=== PATIENT | female | born 1960 | race Caucasian/White ===

== ENCOUNTER 2023-11-21 10:17 | Observation (INO) ==
--- NOTE | 2023-10-19 15:07 | PAT Medication Instructions ---
Medication Instructions Date of Service October 19, 2023 Home Medications Bacillus coagulans-Bacillus subtilis 1.5 billion cell chewable tablet (Probiotic Duo) 1 tab PO QAM Lactobacillus acidophilus (Acidophilus chewable tablet) 1 tab PO DAILY PRN ascorbic acid (vitamin C) 1,000 mg tablet (Vitamin C) 1 g PO QAM black cohosh root extract 200 mg capsule 200 mg PO HS bupropion HCl 100 mg tablet 100 mg PO Q OTHER DAY celecoxib 200 mg capsule 200 mg PO BID cholecalciferol (vitamin D3) 50 mcg (2,000 unit) tablet (Vitamin D3) 4,000 unit PO QAM cinnamon bark 500 mg capsule (Cinnamon) 4,000 mg PO BID cranberry concentrate-ascorbic acid 140 mg-100 mg capsule (Cranberry Plus Vitamin C) 1 cap PO HS cyclobenzaprine 10 mg tablet 10 mg PO TID PRN docusate sodium 100 mg tablet (Stool Softener) 100 mg PO BID echinacea-dodson seal capsule 1 cap PO DAILY PRN glipizide 10 mg tablet, extended release 24 hr 10 mg PO BID insulin glargine 100 unit/mL (3 mL) subcutaneous pen (Lantus Solostar U-100 Insulin) 22 unit subcut HS linagliptin 5 mg tablet (Tradjenta) 5 mg PO QAM loratadine 10 mg tablet 10 mg PO QAM lorazepam 0.5 mg tablet 0.5 mg PO DAILY PRN multivitamin 1 tab PO QAM omega-3 fatty acids 1,000 mg PO HS pantoprazole 40 mg tablet,delayed release 40 mg PO HS sennosides 8.6 mg tablet 8.6 mg PO HS simvastatin 80 mg tablet 80 mg PO QAM Continue as directed bupropion HCl 100 mg tablet 100 mg PO Q OTHER DAY lorazepam 0.5 mg tablet 0.5 mg PO DAILY PRN(if needed) ASK your surgeon for instructions celecoxib 200 mg capsule 200 mg PO BID STOP taking 2 weeks before surgery (or as soon as possible if surgery is within 2 weeks) black cohosh root extract 200 mg capsule 200 mg PO HS cinnamon bark 500 mg capsule (Cinnamon) 4,000 mg PO BID echinacea-dodson seal capsule 1 cap PO DAILY PRN omega-3 fatty acids 1,000 mg PO HS DO NOT take the morning of surgery Bacillus coagulans-Bacillus subtilis 1.5 billion cell chewable tablet (Probiotic Duo) 1 tab PO QAM Lactobacillus acidophilus (Acidophilus chewable tablet) 1 tab PO DAILY PRN ascorbic acid (vitamin C) 1,000 mg tablet (Vitamin C) 1 g PO QAM cholecalciferol (vitamin D3) 50 mcg (2,000 unit) tablet (Vitamin D3) 4,000 unit PO QAM docusate sodium 100 mg tablet (Stool Softener) 100 mg PO BID glipizide 10 mg tablet, extended release 24 hr 10 mg PO BID linagliptin 5 mg tablet (Tradjenta) 5 mg PO QAM loratadine 10 mg tablet 10 mg PO QAM multivitamin 1 tab PO QAM Take morning of surgery With a small sip of water, OTHERWISE NOTHING TO EAT OR DRINK AFTER MIDNIGHT: cyclobenzaprine 10 mg tablet 10 mg PO TID PRN(if needed) simvastatin 80 mg tablet 80 mg PO QAM Take evening before surgery cranberry concentrate-ascorbic acid 140 mg-100 mg capsule (Cranberry Plus Vitamin C) 1 cap PO HS docusate sodium 100 mg tablet (Stool Softener) 100 mg PO BID glipizide 10 mg tablet, extended release 24 hr 10 mg PO BID insulin glargine 100 unit/mL (3 mL) subcutaneous pen (Lantus Solostar U-100 Insulin) 22 unit subcut HS pantoprazole 40 mg tablet,delayed release 40 mg PO HS sennosides 8.6 mg tablet 8.6 mg PO HS cyclobenzaprine 10 mg tablet 10 mg PO TID PRN(if needed) Other Notes If you have any questions please call us at [phone] or [phone] or [phone] or [phone]
--- NOTE | 2023-10-25 13:49 | Anesthesiology Consultation ---
Date of Service October 25, 2023 Assessment & Plan (1) Encounter for pre-operative examination: Chart Review Chart Review: Acceptable Risk for Surgery (pending previous cardiac cath if available ) and Patient seen in Pre Admission Testing - Please attempt to obtain cardiac cath from PCP office (RUDOLPH Shepard)- fax number is [phone] (PCP office requesting record release) - Check [facility] AM DOS - Patient NOT an ideal OPJ candidate (currently 23 hour obs) Per PAT appt on 10/25/23, no recent illness/disease exposures, illness related symptoms, or recent illness/disease positive tests. Will leave to surgeon's discretion if preop Covid testing needed Teaching & Discussion Pre-Anesthesia Teaching/Discussion Notes: Instructed NPO after midnight before surgery,except medications with 15 cc of water. Medication instructions provided according to the PAT guidelines. History Surgery Operation Date: 11/21/23 11:20 Proposed Procedures p Left Anatomic total Shoulder Arthroplasty vs(Left) - Baldomero Vuong DO s Left Reverse Total Shoulder Arthroplasty(Left) - Baldomero Vuong DO Height/Weight Height: 5 ft 5 in Weight: 101.9 kg Allergies Allergy/AdvReac Type Severity Reaction Status Date / Time bee venom protein (honey bee) Allergy Severe Anaphylaxis Verified 10/19/23 09:17 metformin AdvReac Mild Diarrhea Verified 10/19/23 09:17 Medications Home Medications Medication Instructions Recorded Confirmed Last Taken Bacillus coagulans-Bacillus 1 tab PO QAM 10/19/23 10/19/23 Unknown subtilis 1.5 billion cell chewable tablet (Probiotic Duo) Lactobacillus acidophilus 1 tab PO DAILY PRN antibiotic use 10/19/23 10/19/23 Unknown (Acidophilus chewable tablet) ascorbic acid (vitamin C) 1,000 mg 1 g PO QAM 10/19/23 10/19/23 Unknown tablet (Vitamin C) black cohosh root extract 200 mg 200 mg PO HS 10/19/23 10/19/23 Unknown capsule bupropion HCl 100 mg tablet 100 mg PO Q OTHER DAY 10/19/23 10/19/23 Unknown celecoxib 200 mg capsule 200 mg PO BID 10/19/23 10/19/23 Unknown cholecalciferol (vitamin D3) 50 4,000 unit PO QAM 10/19/23 10/19/23 Unknown mcg (2,000 unit) tablet (Vitamin D3) cinnamon bark 500 mg capsule 4,000 mg PO BID 10/19/23 10/19/23 Unknown (Cinnamon) cranberry concentrate-ascorbic 1 cap PO HS 10/19/23 10/19/23 Unknown acid 140 mg-100 mg capsule (Cranberry Plus Vitamin C) cyclobenzaprine 10 mg tablet 10 mg PO TID PRN Muscle Spasm 10/19/23 10/19/23 Unknown docusate sodium 100 mg tablet 100 mg PO BID 10/19/23 10/19/23 Unknown (Stool Softener) echinacea-dodson seal capsule 1 cap PO DAILY PRN sickness 10/19/23 10/19/23 Unknown glipizide 10 mg tablet, extended 10 mg PO BID 10/19/23 10/19/23 Unknown release 24 hr insulin glargine 100 unit/mL (3 22 unit subcut HS 10/19/23 10/19/23 Unknown mL) subcutaneous pen (Lantus Solostar U-100 Insulin) linagliptin 5 mg tablet (Tradjenta) 5 mg PO QAM 10/19/23 10/19/23 Unknown loratadine 10 mg tablet 10 mg PO QAM 10/19/23 10/19/23 Unknown lorazepam 0.5 mg tablet 0.5 mg PO DAILY PRN Anxiety 10/19/23 10/19/23 Unknown multivitamin 1 tab PO QAM 10/19/23 10/19/23 Unknown omega-3 fatty acids 1,000 mg PO HS 10/19/23 10/19/23 Unknown pantoprazole 40 mg tablet,delayed 40 mg PO HS 10/19/23 10/19/23 Unknown release sennosides 8.6 mg tablet 8.6 mg PO HS 10/19/23 10/19/23 Unknown simvastatin 80 mg tablet 80 mg PO QAM 10/19/23 10/19/23 Unknown Past Medical History Medical History Anxiety Chronic back pain Diabetes mellitus, type 2 Well controlled and stable GERD (gastroesophageal reflux disease) Well controlled and stable History of COVID-19 10/2020- mild symptoms, resolved History of depression Hyperlipidemia Osteoarthritis Skipped heart beats intermittent x at least 15 years - did have previous Holter monitor- no issues- 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 Sleep apnea CPAP Exercise / Class Metabolic Activity II 4-5 Yardwork/Stairs/Walk up hill (one flight of stairs - no chest pain or SOB ) Past Family History Family History Mother Family history of reaction to anesthesia difficulty waking Past Surgical History Surgical History (Updated 10/25/23 @ 16:01 by Valeria Coleman PA-C) History of appendectomy History of arthroscopy of hip left History of benign breast biopsy History of bilateral tubal ligation History of bladder suspension procedure History of cardiac cath 2016 ([facility])- no stents History of cholecystectomy History of colonoscopy History of dilatation and curettage x3 History of esophagogastroduodenoscopy (EGD) History of gastric restrictive surgery gastric sleeve History of hysterectomy with unilateral oophorectomy History of removal of cyst Removal of "fibrocystic cyts throughout body" History of repair of left rotator cuff History of umbilical hernia repair History of wisdom tooth extraction Past Anesthesia History No Hx of Anesthesia Complications and No Family Hx of Anesthesia Complications (with exception to mother- slow to wake- groggy - no reintubation or ICU stay ) History of PONV No Hx of PONV and No Hx of Motion Sickness Social History Smoking Status: Former smoker Do You Dip or Chew Tobacco: No Smoking End Date: as a teenager Hx Alcohol Use: Yes ("once a year") alcohol intake frequency: holidays/special occasions only Hx Substance Use: No substance use type: does not use Review of Systems Patient denies chest pain, shortness of breath, dyspnea on exertion, cough, wheezing, palpitations. No hx of seizures, stroke, PA. No hx of blood clots or blood transfusions Physical Exam Vital Signs VITALS BP 133/81 P 49 bpm (baseline per patient- asymptomatic) TEMP 98.1 SP02 95% RESP 16 Constitutional no acute distress ENMT Mouth: no TMJ clicking Thyromental Distance: > or= 3.5 Finger Breadths (3.5) Mallampati Class: III Neck neck extension not limited Respiratory normal respiratory effort; no respiratory distress Auscultation: lungs clear to auscultation bilaterally; no wheezes Cardiovascular Rate/Rhythm: regular rate and regular rhythm Heart Sounds: no murmur Vessels: no carotid bruit Musculoskeletal Spine: + pain with cervical ROM (mild) Extremities: extremities normal to inspection Psychiatric Orientation: alert Lab Results Anesthesia Preop Results Results Anesthesia Widget: WBC 7.76 K/ul (4.8-10.8) 10/25/23 Hgb 13.3 g/dl (12.0-16.0) 10/25/23 Hct 40.8 % (37.0-47.0) 10/25/23 Plt 240 K/uL (130-400) 10/25/23 Na 139 mmol/L (136-145) 10/25/23 K 4.5 mmol/L (3.5-5.1) 10/25/23 Cl 106 mmol/L (98-107) 10/25/23 CO2 29 mmol/L (21-32) 10/25/23 BUN 20 mg/dl (6-23) 10/25/23 Creat 0.96 mg/dl (0.6-1.2) 10/25/23 Glucose Level 158 mg/dl (70-99(Fasting)) H 10/25/23 PT 10.4 Seconds (9.0-12.0) 10/25/23 PTT 26 Seconds (21-31) 10/25/23 INR 0.9 (0.9-1.1) 10/25/23 HA1c 7.6 % (4.5-5.6) H 10/25/23 Blood Type A Positive 10/25/23 Antibody Screen NEGATIVE 10/25/23 Testing Electrocardiogram Date: 10/25/23 Findings: + SB @ (46bpm) Otherwise normal EKG per cardio Chest X-Ray Date: 10/25/23 Findings: + NAD
--- NOTE | 2023-11-16 16:28 | History & Physical Report ---
Date of Service November 16, 2023 Assessment & Plan (1) Osteoarthritis of left shoulder: We will proceed with a left total shoulder arthroplasty versus reverse shoulder arthroplasty. Postoperatively she will be placed in a sling and will be kept overnight in the hospital for postop medical management. She plans to go to [facility] upon discharge. History of Present Illness Chief Complaint: Osteoarthritis of the left shoulder. Primary Care Provider: NO PCP . Pamela is a pleasant 63-year-old female who underwent a left shoulder arthroscopy by Dr. Hurtado over a year ago. Postoperatively, a therapist moved her arm a little aggressively and out of her comfort zone. She has been having an increased pain since. She has known arthritis to that shoulder. Dr. Hurtado told her she would need a shoulder replacement, but she came to me for a second opinion. I have sent her for an MRI of her shoulder. The MRI showed advanced arthritis but an intact rotator cuff. After failing conservative treatment, she has elected proceed with a left total shoulder arthroplasty. Allergies Allergy/AdvReac Type Severity Reaction Status Date / Time bee venom protein (honey bee) Allergy Severe Anaphylaxis Verified 10/19/23 09:17 metformin AdvReac Mild Diarrhea Verified 10/19/23 09:17 Home Medications Medication Instructions Recorded Confirmed Type Bacillus coagulans-Bacillus 1 tab PO QAM 10/19/23 10/19/23 History subtilis 1.5 billion cell chewable tablet (Probiotic Duo) Lactobacillus acidophilus 1 tab PO DAILY PRN antibiotic use 10/19/23 10/19/23 History (Acidophilus chewable tablet) ascorbic acid (vitamin C) 1,000 mg 1 g PO QAM 10/19/23 10/19/23 History tablet (Vitamin C) black cohosh root extract 200 mg 200 mg PO HS 10/19/23 10/19/23 History capsule bupropion HCl 100 mg tablet 100 mg PO Q OTHER DAY 10/19/23 10/19/23 History celecoxib 200 mg capsule 200 mg PO BID 10/19/23 10/19/23 History cholecalciferol (vitamin D3) 50 4,000 unit PO QAM 10/19/23 10/19/23 History mcg (2,000 unit) tablet (Vitamin D3) cinnamon bark 500 mg capsule 4,000 mg PO BID 10/19/23 10/19/23 History (Cinnamon) cranberry concentrate-ascorbic 1 cap PO HS 10/19/23 10/19/23 History acid 140 mg-100 mg capsule (Cranberry Plus Vitamin C) cyclobenzaprine 10 mg tablet 10 mg PO TID PRN Muscle Spasm 10/19/23 10/19/23 History docusate sodium 100 mg tablet 100 mg PO BID 10/19/23 10/19/23 History (Stool Softener) echinacea-dodson seal capsule 1 cap PO DAILY PRN sickness 10/19/23 10/19/23 History glipizide 10 mg tablet, extended 10 mg PO BID 10/19/23 10/19/23 History release 24 hr insulin glargine 100 unit/mL (3 22 unit subcut HS 10/19/23 10/19/23 History mL) subcutaneous pen (Lantus Solostar U-100 Insulin) linagliptin 5 mg tablet (Tradjenta) 5 mg PO QAM 10/19/23 10/19/23 History loratadine 10 mg tablet 10 mg PO QAM 10/19/23 10/19/23 History lorazepam 0.5 mg tablet 0.5 mg PO DAILY PRN Anxiety 10/19/23 10/19/23 History multivitamin 1 tab PO QAM 10/19/23 10/19/23 History omega-3 fatty acids 1,000 mg PO HS 10/19/23 10/19/23 History pantoprazole 40 mg tablet,delayed 40 mg PO HS 10/19/23 10/19/23 History release sennosides 8.6 mg tablet 8.6 mg PO HS 10/19/23 10/19/23 History simvastatin 80 mg tablet 80 mg PO QAM 10/19/23 10/19/23 History Past Med/Surg History Medical History Chronic back pain Osteoarthritis GERD (gastroesophageal reflux disease) Well controlled and stable History of depression Anxiety Diabetes mellitus, type 2 Well controlled and stable Hyperlipidemia Skipped heart beats intermittent x at least 15 years - did have previous Holter monitor- no issues- 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 History of COVID-19 10/2020- mild symptoms, resolved Sleep apnea CPAP Surgical History History of hysterectomy with unilateral oophorectomy History of dilatation and curettage x3 History of bilateral tubal ligation History of removal of cyst Removal of "fibrocystic cyts throughout body" History of repair of left rotator cuff History of arthroscopy of hip left History of benign breast biopsy History of bladder suspension procedure History of colonoscopy History of esophagogastroduodenoscopy (EGD) History of umbilical hernia repair History of cholecystectomy History of appendectomy History of gastric restrictive surgery gastric sleeve History of wisdom tooth extraction History of cardiac cath 2016 ([facility])- no stents Family History Mother Family history of reaction to anesthesia difficulty waking Social History Smoking Status: Former smoker Tobacco Type: Cigarettes Smoking End Date: as a teenager; Second Hand Exposure: No; Do You Dip or Chew Tobacco: No; Tobacco Cessation Education Requested by Patient: No Hx Alcohol Use: Yes ("once a year") Hx Substance Use: No Preferred Language: Turkmen Communication Ability: Effective Brilliandeer Looper Required: No Beliefs That Will Affect Care: None Current Living Situation: Alone Other Information That Helps Us Care for You: No Feels Safe at Home: Yes Safety Concerns: Feels Safe At This Time Assistive Devices: CPAP and Glasses Assistive Devices Comment: reading glasses Review of Systems All systems reviewed & are unremarkable except as noted in HPI & below. Physical Exam Physical examination of the left shoulder shows slightly decreased range of motion. She has 5 5 motion throughout. She has pain over the glenohumeral joint line. Constitutional WD/WN, vitals as above Eyes PERRL, conjunctivae normal, anicteric sclerae ENMT external ear and nose normal, oropharynx normal Neck trachea midline, no thyromegaly Respiratory normal respiratory effort Cardiovascular RRR, no murmur, no edema Gastrointestinal (Abdomen) normal bowel sounds, soft, nontender, no hepatosplenomegaly Psychiatric A+Ox3, euthymic affect Results & Data Results & Data Laboratory Results . Diagnostic Findings X-rays of the left shoulder show advanced osteoarthritis with joint space narrowing osteophyte formation.. PG Care Time/CCT Total # of Minutes Spent Total Time Spent with Patient: Total time spent is greater than 50% in coordination of care (as documented) at patient's floor/unit and/or counseling patient: Coding Level of Care Code None Diagnoses Osteoarthritis of left shoulder M19.012
[~2023-11-21 10:17] MED LIST: BUPIVACAINE 0.5 % 5 MG/1 ML PF 10ML VIAL ONE
[2023-11-21] MEDS ORDERED: LIDOCAINE 2% 2 ML VIAL/AMP(20MG/ML) INFIL ONE (10:20)
[2023-11-21] MEDS ORDERED: PROPOFOL IV EMULSION 10 MG/ML 20 ML VIAL IV ONE (10:20)
[2023-11-21] MEDS ORDERED: MIDAZOLAM HCL 1 MG/ML 2ML VIAL ONE (10:20)
[2023-11-21] MEDS ORDERED: ROCURONIUM BROMIDE 10 MG/ML 5 ML VIAL IV ONE (10:20)
[2023-11-21] MEDS ORDERED: fentaNYL citrate PF 100 MCG/2 ML VIAL ONE (10:21)
[2023-11-21] MEDS: LR 60ML/HR IV SCH (11:06)
[2023-11-21] MEDS: LR 15ML/HR IV SCH (11:06)
[2023-11-21] MEDS: dexAMETHasone**PF** 10 MG/ML VIAL IV SCH (11:06)
[2023-11-21] MEDS: GABAPENTIN 600 MG DOSE PO SCH (11:07)
[2023-11-21] MEDS: FAMOTIDINE 20 MG TAB PO SCH (11:07)
[2023-11-21] MEDS: ACETAMINOPHEN 500 MG TAB PO SCH ×2 (11:07→16:10)
[2023-11-21] MEDS ORDERED: fentaNYL citrate PF 100 MCG/2 ML VIAL IV PRN (11:22)
[2023-11-21] MEDS ORDERED: ATROPINE SULFATE 0.1 MG/ML 10ML SYR IV PRN (11:22)
[2023-11-21] MEDS ORDERED: ePHEDrine sulfate 50 MG/ML AMP IV PRN (11:22)
[2023-11-21] MEDS ORDERED: ONDANSETRON INJ 2 MG/ML 2 ML VIAL IV PRN ×2 (11:22→15:40)
[2023-11-21] MEDS ORDERED: PROMETHAZINE HCL 6.25 MG in SODIUM CHLORIDE 0.9% 50 ML IV PRN (11:22)
--- NOTE | 2023-11-21 11:23 | History & Physical Bridge Note ---
Date of Service November 21, 2023 History & Physical Bridge Note I have examined the patient, reviewed the History & Physical and in the interval since the performance of the History & Physical I have noted the following changes of clinical significance: no changes noted
[2023-11-21] MEDS: TRANEXAMIC ACID 1,000 MG **IV Pre-op IV SCH (12:00)
[2023-11-21] MEDS: ceFAZolin 2000MG 2,000 MG/15 ML SYR IV SCH ×2 (12:14→18:02)
[2023-11-21] MEDS ORDERED: DEXAMETHASONE SOD INJ 4 MG/ML VIAL ONE (12:36)
[2023-11-21] MEDS ORDERED: ePHEDrine sulfate 50 MG/ML AMP ONE (13:02)
[2023-11-21] MEDS: ROPIV 0.5% 246mg, Ketorolac 30mg, EPINEPHrine 0.5mg in NSS INFIL SCH (13:14)
[2023-11-21] MEDS: ORTHO JOINT ANESTHETIC ONE (13:14)
[2023-11-21] MEDS ORDERED: ONDANSETRON INJ 2 MG/ML 2 ML VIAL ONE (13:35)
[2023-11-21] MEDS: TRANEXAMIC ACID 1,000 MG **IV Intra-op IV SCH (13:37)
--- NOTE | 2023-11-21 14:33 | Anesthesiology Progress Note ---
Date of Service November 21, 2023 Anesthesia Post Procedure Vital Signs Vital Signs: Temp Pulse Pulse Resp BP Pulse Ox O2 Del Method 11/21/23 14:25 56 L 15 130/63 97 Oxymask 11/21/23 14:15 65 17 132/65 93 Oxymask 11/21/23 14:05 36 C L 69 19 143/72 H 93 Oxymask 11/21/23 10:41 36.8 C 53 L 18 155/68 H 97 Room Air O2 Flow Rate 11/21/23 14:25 4 11/21/23 14:15 6 11/21/23 14:05 6 11/21/23 10:41 Pain Intensity Right Shoulder: Pain Intensity: 6 Transfer of Care Handoff Completed per policy Notes Mental Status: alert / awake / arousable and participated in evaluation Patient Amnestic to Procedure: Yes Nausea / Vomiting: adequately controlled Pain: adequately controlled Airway Patency, RR, SpO2: stable & adequate BP & HR: stable & adequate Hydration State: stable & adequate Anesthetic Complications: no major complications apparent and Pt Satisfied with anesthetic care
--- NOTE | 2023-11-21 14:59 | XRay Report ---
LEFT SHOULDER 2 VIEWS CLINICAL HISTORY: Postoperative examination. FINDINGS: 2 portable views of the left shoulder are compared to study dated 08/30/2023. The skeletal structures are osteopenic. A left shoulder arthroplasty is in near anatomic alignment. No acute fract ure seen. Skin clips, subcutaneous gas, and soft tissue swelling overlying the left shoulder are expe cted postsurgical changes. Productive degenerative change is noted at the acromioclavicular joint. At electasis is seen at the left lung base. IMPRESSION: Expected postoperative findings status post left shoulder arthroplasty. No acute fracture is seen. Electronically signed by: Adrian Narvaez M.D. 11/21/2023 2:57 PM
[2023-11-21] MEDS ORDERED: LORazepam 0.5 MG TAB PO PRN (15:40)
[2023-11-21] MEDS ORDERED: NALOXONE HCL 0.4 MG/1 ML VIAL/CARP IV PRN (15:40)
[2023-11-21] MEDS ORDERED: PHARMACY GLYCEMIC MGMT CONSULT PRN (15:40)
[2023-11-21] MEDS ORDERED: CYCLOBENZAPRINE HCL 10 MG TAB PO PRN (15:40)
[2023-11-21] MEDS ORDERED: HYDROmorphone INJ 0.5 MG/0.5 ML SYR IV PRN (15:40)
[2023-11-21] MEDS ORDERED: MAGNESIUM HYDROXIDE SUSP 30 ML UDC PO PRN (15:40)
[2023-11-21] MEDS ORDERED: METOCLOPRAMIDE HCL INJ 5 MG/ML 2 ML VIAL IV PRN (15:40)
[2023-11-21] MEDS ORDERED: bisacodyL 10 MG SUPP PR PRN (15:40)
[2023-11-21] MEDS: SODIUM CHLORIDE 0.9% 1,000 ML IV SCH (15:43)
[2023-11-21] MEDS ORDERED: FEXOFENADINE 60 MG TAB PO PRN (15:50)
[2023-11-21] MEDS: KETOROLAC 30 MG/ML VIAL IV SCH (16:10)
[2023-11-21] MEDS ORDERED: CARBOHYDRATES FOR HYPOGLYCEMIA PO PRN (16:15)
[2023-11-21] MEDS ORDERED: GLUCOSE 40% GEL 15 GM TUBE PO PRN (16:15)
[2023-11-21] MEDS ORDERED: GLUCAGON FOR INJ 1 MG VIAL IM PRN (16:15)
[2023-11-21] MEDS ORDERED: DEXTROSE 50% 50 ML SYRINGE IV PRN (16:15)
[2023-11-21] MEDS ORDERED: INSULIN ASPART PER UNIT CHARGE SC SCH ×2 (16:15→16:30)
[2023-11-21] MEDS ORDERED: GLUCOSE 10 TAB/TUBE PO PRN (16:15)
[2023-11-21] MEDS: buPROPion HCl 100 MG TABLET PO SCH (16:51)
[2023-11-21] MEDS: LANTUS PER UNIT CHARGE SC ONE (16:55)
[2023-11-21] MEDS: COUGH DROP (SUGAR FREE) LOZ 24 LOZ/1 BOX BUCCAL ONE (19:10)
[2023-11-21] MEDS: INSULIN ASPART PER UNIT CHARGE SC SCH (20:27)
[2023-11-21] MEDS: SENNA 8.6 MG TAB PO SCH (20:35)
[2023-11-21] MEDS: DOCUSATE SODIUM 100 MG CAP PO SCH (20:36)
[2023-11-21] MEDS ORDERED: NON-FORMULARY MEDICATION (Docusate Sodium [Stool Softener] 100 mg Tablet) PO SCH (21:00)
[2023-11-22] MEDS: MULTIVITAMIN TAB PO SCH (08:18)
[2023-11-22] MEDS: LORATADINE 10 MG TAB PO SCH (08:18)
[2023-11-22] MEDS: SIMVASTATIN 80 MG TAB PO SCH (08:18)
[2023-11-22] MEDS: INSULIN ASPART PER UNIT CHARGE SC SCH (08:23)
[2023-11-22] MEDS: oxyCODONE HCL IR 5 MG TAB (IMMEDIATE RELEASE) PO PRN (09:41)
--- NOTE | 2023-11-22 10:09 | Orthopedic Progress Note ---
Date of Service November 22, 2023 Assessment & Plan (1) Status post replacement of left shoulder joint: Overall, she is doing quite well today with good pain control. I did have a discussion that her nerve block may remain active for the next 24 to 48 hours postoperatively. She is already regaining some range of motion and sensation. She will work with physical therapy later this morning to work on range of motion exercises of the left upper extremity. Once evaluated by physical therapy, she can be discharged home later this morning. She will follow-up with orthopedics in 2 weeks for postoperative care. Subjective . Pamela was seen and evaluated at bedside this morning resting comfortably in no apparent distress. She notes that her pain is well-controlled to the left arm and that her block is still somewhat there but she is noticing it is slowly we aring off. She has been up and ambulating out of bed with no significant issues. She has yet to work with physical therapy this morning. She denies any other concerns today. Review of Systems All systems reviewed & are unremarkable except as noted in HPI & below. Physical Exam . On physical examination of the left shoulder shows the dressing is clean, dry, and intact. She is in her shoulder sling as directed. She has slight movement and altered sensation secondary from the nerve block to the left upper extremity. +2 radial pulse. Less than 2-second capillary refill. Results & Data Results & Data Laboratory Results . Diagnostic Findings . Postoperative x-rays of the left shoulder show prosthesis to be in anatomical alignment with no signs of fracture complication or loosening. PG Care Time/CCT Total # of Minutes Spent Total Time Spent with Patient: Total time spent is greater than 50% in coordination of care (as documented) at patient's floor/unit and/or counseling patient: Coding Level of Care Code 42906 Post Operative Follow-Up Diagnoses Status post replacement of left shoulder joint Z96.612
--- NOTE | 2023-11-22 10:12 | Discharge Summary ---
Date of Service November 22, 2023 Admission HPI (Per Admitting) . Pamela is a pleasant 63-year-old female who underwent a left shoulder arthroscopy by Dr. Hurtado over a year ago. Postoperatively, a therapist moved her arm a little aggressively and out of her comfort zone. She has been having an increased pain since. She has known arthritis to that shoulder. Dr. Hurtado told her she would need a shoulder replacement, but she came to me for a second opinion. I have sent her for an MRI of her shoulder. The MRI showed advanced arthritis but an intact rotator cuff. After failing conservative treatment, she has elected proceed with a left total shoulder arthroplasty. Admission Exam (Per Admitting) Physical examination of the left shoulder shows slightly decreased range of motion. She has 5 5 motion throughout. She has pain over the glenohumeral joint line. Principal Diagnosis Same as "Discharge Diagnosis" noted below under Discharge Instructions. Discharge Exam . On physical examination of the left shoulder shows the dressing is clean, dry, and intact. She is in her shoulder sling as directed. She has slight movement and altered sensation secondary from the nerve block to the left upper extremity. +2 radial pulse. Less than 2-second capillary refill. Discharge Data Procedures Performed Operation Date: 11/21/23 12:00 Actual Procedures p Left Anatomic Total Shoulder Arthroplasty(Left) - Baldomero Vuong DO Ordered Studies 11/21/23 05:00 US - OR guided needle placemen Routine Hospital Course (1) Status post replacement of left shoulder joint: On November 21, 2023 Pamela arrived at [facility] and underwent a left anatomic total shoulder arthroplasty performed by Dr. Vuong with no complications. She had a general anesthetic. Postoperatively, she was transferred to the PACU for immediate postoperative care and then transferred to the general orthopedic floor in stable condition. Her hospital course was uneventful. On postoperative day #1, her vital signs were stable and her pain was well-controlled. She participated well with physical therapy working on range of motion exercises. She was then discharged home in stable condition. She will follow-up in 2 weeks with orthopedics for postoperative care. PG Care Time/CCT Total # of Minutes Spent Total Time Spent with Patient: Total time spent is greater than 50% in coordination of care (as documented) at patient's floor/unit and/or counseling patient: Discharge Plan Discharge Items Patient Disposition: Home - Self-Care Reason For Visit: Degenerative Joint Disease Left Shoulder Discharge Diagnosis: Same Activity: Per Instructions section Non-emergency contact: Surgeon Call non-emergency contact if: your temperature is above 101.5, your wound has increased redness, your wound has increased drainage and your wound pain has increased Follow-up/Referrals: PCP,NO [Physician] - Diet: Regular Addtl Attending Provider Instructions: Activity and Therapy Recommendations: * If you are using [facility] then therapy will be provided at your home until they feel you have accomplished all of your goals. * If you are using [facility] then Physical Therapy will be provided until they feel you are ready to start Outpatient Physical Therapy. * If you are not using home therapy then Outpatient Physical Therapy should start about 3-5 days from your day of surgery. Therapy will last about 8-12 weeks * Wear your sling for 3 weeks, unless otherwise instructed. You may remove your sling to shower and to dress, but otherwise, you should be in your sling at all times, including while sleeping * The shoulder replacement is very stable and you can use your hand while in the sling * You were shown a series of exercises in the hospital. Do these exercises daily including the exercises you were shown in physical therapy. Medications: * Narcotic You will likely be sent home from the hospital with a prescription for the narcotic pain medication that worked best throughout your stay. * Cefadroxil -take the antibiotic twice a day for 10 days to help prevent infection. * Other medications may be prescribed for specific circumstances. If you have any questions, please call the office at . * Resume previous home medications unless otherwise instructed Dressing Care: Leave the Silverlon dressing in place for 7 days. After 7 days you may remove the dressing. If the incision is not draining then you may leave the windy open to air. If there is a little bit of drainage or if the windy are getting stuck on your clothing then cover the incision with a dry dressing. The windy will be removed at your 2 week follow-up appointment. Showering: You may shower with the Silverlon dressing in place. Do not let the shower spray hit the dressing directly. Pat the Silverlon dressing dry. If the dressing becomes wet underneath, then simply remove the dressing. Keep the incision dry until you are 7 days out from the day of surgery. After 7 days you may remove the Silverlon dressing and shower with the windy exposed. Let soapy water run over the windy and pat them dry. Do not scrub or soak the incision. Things To Watch For: * Drainage from the incision site that occurs more than one week after your surgery. * Increased redness at the incision site. * Fever above 102 degrees Fahrenheit. * Unusual chest pain or shortness of breath. * Call [facility] at with any of the above problems Follow-Up Visit: Follow-up with Dr. Vuong's PA (Baldomero Rodriguez) 2-3 weeks after your day of surgery. He will remove your windy and answer any questions. If you have any additional questions or concerns, Dr Vuong is usually in the office at the same time and will be available An appointment was probably scheduled when you signed-up for surgery in the office. If you have any questions call More detailed instructions as well as Frequently Asked Questions were provided in a folder by our office when you signed-up for surgery. Please review these instructions when you get home. If you have any further questions or concerns, please feel free to call the office at [phone] Pending Studies at Discharge: No Stand-Alone Forms: My [facility], Smoking Cessation Medications and DC Order Prescriptions: New oxycodone 5 mg Tablet 5 mg PO Q6 PRN (Reason: pain) Qty: 30 0RF cefadroxil 500 mg capsule 500 mg PO BID 10 Days Qty: 20 0RF Continued celecoxib [Celebrex] 200 mg Capsule 200 mg PO BID cyclobenzaprine 10 mg Tablet 10 mg PO TID PRN (Reason: Muscle Spasm) glipizide 10 mg Tablet Extended Release 24hr 10 mg PO BID Cranberry Plus Vitamin C 140-100 mg Capsule 1 cap PO HS bupropion HCl 100 mg Tablet 100 mg PO Q OTHER DAY Patient Comments: takes in the am lorazepam [Ativan] 0.5 mg Tablet 0.5 mg PO DAILY PRN (Reason: Anxiety) echinacea-dodson seal Capsule 1 cap PO DAILY PRN (Reason: sickness) loratadine [Claritin] 10 mg Tablet 10 mg PO QAM black cohosh root extract 200 mg Capsule 200 mg PO HS Acidophilus Tablet,Chewable 1 tab PO DAILY PRN (Reason: antibiotic use) cinnamon bark [Cinnamon] 500 mg Capsule 4,000 mg PO BID insulin glargine [Lantus Solostar U-100 Insulin] 100 unit/mL (3 mL) Insulin Pen 22 unit SUBCUT HS Probiotic Duo 1.5 billion cell Tablet,Chewable 1 tab PO QAM multivitamin Tablet 1 tab PO QAM omega-3 fatty acids Capsule 1,000 mg PO HS sennosides 8.6 mg Tablet 8.6 mg PO HS pantoprazole 40 mg Tablet,Delayed Release (Dr/Ec) 40 mg PO HS ascorbic acid (vitamin C) [Vitamin C] 1,000 mg Tablet 1 g PO QAM simvastatin 80 mg Tablet 80 mg PO QAM docusate sodium [Stool Softener] 100 mg Tablet 100 mg PO BID cholecalciferol (vitamin D3) [Vitamin D3] 50 mcg (2,000 unit) Tablet 4,000 unit PO QAM Tradjenta 5 mg Tablet 5 mg PO QAM fexofenadine 30 mg Tablet 30 mg PO DAILY PRN (Reason: Allergy Symptoms) Discharge Orders: Discharge Order (Routine); Ordered 11/22/23 Ordered By: Migel Qiu Admission Data Admit Date/Time: 11/21/23 12:41 Attending Provider: Baldomero Vuong Admit Provider: Baldomero Vuong Primary Care Provider: Iris Raman
--- NOTE | 2023-12-05 13:43 | Operative Report ---
PG Post Operative Report Pre & Post Diagnosis Operation Date: 11/21/23 12:00 Pre-Op Diagnosis: Degenerative Joint Disease Left Shoulder with tendinopathy long head of the biceps tendon Post-Op Diagnosis: Degenerative Joint Disease Left Shoulder with tendinopathy long head of the biceps tendon I identified the patient and participated in the time-out.: Yes Procedure Operation Date: 11/21/23 12:00 Actual Procedures p Left Anatomic Total Shoulder Arthroplasty(Left) with open biceps tenodesis as a distinct and separate procedure (modifier 59)- Baldomero Vuong DO Surgeon Baldomero Vuong DO [employer] Baldomero Rodriguez PA-C Estimated Blood Loss 200 Findings Consistent with Post-Op Diagnosis Specimens Left humeral head Description of Procedure A CPT code modifier 59: The long head of the biceps tendon was enlarged and inflamed consistent with tendinopathy. A tenodesis was opted. This was a separate and distinct portion of the procedure. For these reasons, a CPT code modifier 59 will be added to this case. Implants used: I used a [employer] Comprehensive total shoulder arthroplasty system with a size 10 press fit micro humeral stem, a size 46 x 18 eccentric humeral head, and a size 4 glenoid with a trabecular metal peg. The glenoid was cemented in place with Palacos G cement. Pamela arrived at [facility] for the above procedure. She was seen in the preoperative holding area and the operative extremity was identified and signed. She was given a preoperative antibiotic, TXA, and an interscalene nerve block. She was taken back to the operating room, laid on table in supine position, and put under general anesthesia. She was then put into the beachchair position. The shoulder was then prepped and draped in sterile fashion. A timeout was done and the patient and the operative extremity was properly identified. A deltopectoral approach was used. Dissection was taken down through the fascia and the deltoid was retracted laterally and the conjoined tendon was retracted medially. The anterior shoulder was exposed. The biceps groove was opened up and the biceps tendon was examined extensively. The biceps tendon demonstrated enlargement and inflammatory changes consistent with longstanding inflammation in the context of osteoarthritis. The long head of the biceps tendon was then tenodesed to the upper border of the pectoralis major. This was a separate and distinct portion of the procedure. The subscapularis was then released off the lesser tuberosity with a centimeter of cuff tissue remaining. The inferior capsule was released and the humeral head was dislocated. The rotator cuff was inspected and intact. A canal finding reamer was sent down the center of the humeral canal. Sequential reaming up to a size 10 reamer was done. Offset reamer a proximal humeral resection guide was placed. The proximal humerus was resected at 135 of inclination and 30 of retroversion. Inferior osteophytes were then removed and the glenoid was exposed. Time was spent doing an appropriate labral release. The glenoid measured to be a size 4. A 3.2 mm Steinmann pin was placed in the central hole of the glenoid vault pin guide. The glenoid was then reamed with a propeller reamer. The central post cutter was then used to prepare for the central boss. The cannulated peripheral peg drill guide was then placed and 3 peg holes were drilled. The final size 4 glenoid was then cemented in place with Palacos G cement. Surrounding soft tissues were then injected with 100 cc of an orthopedic pain control cocktail. Once cement had dried the proximal humerus was once again exposed. Sequential broaching of the humerus up to a size 10 broach was done. Off that broach a size 46 x 18 eccentric humeral head was trialed. The shoulder was then reduced, brought through a full range of motion, and felt to be stable. The shoulder was then dislocated and the broach was removed. The final size 10 micro humeral stem implant was then impacted into place. A size 46 x 18 eccentric humeral head was then impacted onto the humeral stem. The shoulder was then reduced and once again brought through a full range of motion and felt to be stable. The subscapularis was then tenodesed back to the lesser tuberosity with transosseous FiberWire sutures and side to side sutures with the arm in 45 of external rotation. 2 sutures were placed in the lateral rotator interval. A dilute betadyne lavage was then done for 3 minutes. The joint was then irrigated with normal saline solution. Hemostasis was obtained. The interval was closed with 2-0 Vicryl suture. The skin was closed with 2-0 Vicryl and windy. A Silverlon dressing was placed and the arm was rested in a regular arm sling. She was then extubated and transferred to a hospital bed. She was taken to the postanesthesia care unit in stable condition. She tolerated the procedure well. Baldomero Rodriguez PA-C, was present for the entire procedure. He was critical for patient positioning, prepping, draping, retraction exposure, wound closure and application of sterile dressing. I attest to the content of the Intraoperative Record and any orders documented therein. Any exceptions are noted below.
== END 2023-11-22 12:46 | disposition home or self-care (01) ==
LOC: 3E 10:17 → ASU 10:17

== ENCOUNTER 2024-11-19 09:56 | Observation (INO) ==
--- NOTE | 2024-10-23 14:49 | PAT Medication Instructions ---
Medication Instructions Date of Service October 23, 2024 Home Medications Medication Instructions Recorded tramadol 50 mg tablet 50 mg PO Q8H PRN pain #30 tabs 10/01/24 Bacillus coagulans-Bacillus subtilis 1.5 billion cell chewable tablet (Probiotic Duo) 1 tab PO QAM Lactobacillus acidophilus (Acidophilus chewable tablet) 1 tab PO DAILY PRN antibiotic use ascorbic acid (vitamin C) 1,000 mg tablet (Vitamin C) 1 g PO QAM bupropion HCl 100 mg tablet 100 mg PO Q2D celecoxib 200 mg capsule (Celebrex) 200 mg PO BID cholecalciferol (vitamin D3) 50 mcg (2,000 unit) tablet (Vitamin D3) 4,000 unit PO QAM cranberry concentrate-ascorbic acid 140 mg-100 mg capsule (Cranberry Plus Vitamin C) 1 cap PO HS cyclobenzaprine 10 mg tablet 10 mg PO TID PRN Muscle Spasm docusate sodium 100 mg tablet (Stool Softener) 100 mg PO BID echinacea-dodson seal capsule 1 cap PO DAILY PRN sickness glipizide 10 mg tablet, extended release 24 hr 10 mg PO BID insulin glargine 100 unit/mL (3 mL) subcutaneous pen (Lantus Solostar U-100 Ins ulin) 22 unit subcut HS linagliptin 5 mg tablet (Tradjenta) 5 mg PO QAM loratadine 10 mg tablet (Claritin) 10 mg PO QAM lorazepam 0.5 mg tablet (Ativan) 0.5 mg PO DAILY PRN Anxiety multivitamin 1 tab PO QAM omega-3 fatty acids 1,000 mg PO HS pantoprazole 40 mg tablet,delayed release 40 mg PO HS sennosides 8.6 mg tablet 8.6 mg PO HS simvastatin 80 mg tablet 80 mg PO QAM fexofenadine 30 mg tablet 30 mg PO DAILY PRN Allergy Symptoms semaglutide 0.25 mg or 0.5 mg (2 mg/3 mL) subcutaneous pen injector (Ozempic) 0.5 mg subcut Q7D tramadol 50 mg tablet 50 mg PO Q8H PRN pain fluticasone propionate 50 mcg/actuation nasal spray,suspension 1 spray intranasal DAILY PRN Nasal Congestion triamcinolone acetonide 0.5 % topical cream 1 applic topical DAILY PRN Itching Continue as directed bupropion HCl 100 mg tablet 100 mg PO Q2D ASK your surgeon for instructions celecoxib 200 mg capsule (Celebrex) 200 mg PO BID STOP taking 2 weeks before surgery cranberry concentrate-ascorbic acid 140 mg-100 mg capsule (Cranberry Plus Vitamin C) 1 cap PO HS echinacea-dodson seal capsule 1 cap PO DAILY PRN sickness omega-3 fatty acids 1,000 mg PO HS STOP taking at least 7 days before surgery semaglutide 0.25 mg or 0.5 mg (2 mg/3 mL) subcutaneous pen injector (Ozempic) 0.5 mg subcut Q7D STOP taking 24 hours before surgery triamcinolone acetonide 0.5 % topical cream 1 applic topical DAILY PRN Itching DO NOT take the morning of surgery Bacillus coagulans-Bacillus subtilis 1.5 billion cell chewable tablet (Probiotic Duo) 1 tab PO QAM Lactobacillus acidophilus (Acidophilus chewable tablet) 1 tab PO DAILY PRN antibiotic use ascorbic acid (vitamin C) 1,000 mg tablet (Vitamin C) 1 g PO QAM cholecalciferol (vitamin D3) 50 mcg (2,000 unit) tablet (Vitamin D3) 4,000 unit PO QAM docusate sodium 100 mg tablet (Stool Softener) 100 mg PO BID glipizide 10 mg tablet, extended release 24 hr 10 mg PO BID linagliptin 5 mg tablet (Tradjenta) 5 mg PO QAM loratadine 10 mg tablet (Claritin) 10 mg PO QAM multivitamin 1 tab PO QAM fexofenadine 30 mg tablet 30 mg PO DAILY PRN Allergy Symptoms Take morning of surgery With a small sip of water, OTHERWISE NOTHING TO EAT OR DRINK AFTER MIDNIGHT: cyclobenzaprine 10 mg tablet 10 mg PO TID PRN Muscle Spasm (if needed) lorazepam 0.5 mg tablet (Ativan) 0.5 mg PO DAILY PRN Anxiety (if needed) simvastatin 80 mg tablet 80 mg PO QAM tramadol 50 mg tablet 50 mg PO Q8H PRN pain (if needed) fluticasone propionate 50 mcg/actuation nasal spray,suspension 1 spray intranasal DAILY PRN Nasal Congestion (if needed) Take evening before surgery cyclobenzaprine 10 mg tablet 10 mg PO TID PRN Muscle Spasm (if needed) docusate sodium 100 mg tablet (Stool Softener) 100 mg PO BID glipizide 10 mg tablet, extended release 24 hr 10 mg PO BID insulin glargine 100 unit/mL (3 mL) subcutaneous pen (Lantus Solostar U-100 Insulin) 22 unit subcut HS lorazepam 0.5 mg tablet (Ativan) 0.5 mg PO DAILY PRN Anxiety (if needed) pantoprazole 40 mg tablet,delayed release 40 mg PO HS sennosides 8.6 mg tablet 8.6 mg PO HS fexofenadine 30 mg tablet 30 mg PO DAILY PRN Allergy Symptoms (if needed) tramadol 50 mg tablet 50 mg PO Q8H PRN pain (if needed) fluticasone propionate 50 mcg/actuation nasal spray,suspension 1 spray intranasal DAILY PRN Nasal Congestion (if needed) Other Notes If you have any questions please call us at [phone] or [phone] or [phone] or [phone]
--- NOTE | 2024-11-06 10:03 | Anesthesiology Consultation ---
Date of Service November 06, 2024 Assessment & Plan (1) Encounter for pre-operative examination: - Check BSG DOS - Infectious disease screening: Per assessment on 11/06/24- No known recent infectious disease contacts or current infectious disease symptoms. - Outpatient joint assessment: Pt currently scheduled for inpatient pathway. If surgeon requests review for outpatient joint pathway, patient is not recommended candidate for outpatient joint program from anesthesia standpoint based on available information. - Semaglutide instructions: Patient informed by PAT to stop 7 days prior to surgery- voiced understanding. DOS 11/19/24. Advised last dose to be 11/11/24. Chart Review Chart Review: Acceptable Risk for Surgery and Patient seen in Pre Admission Testing Teaching & Discussion Pre-Anesthesia Teaching/Discussion Notes: Instructed NPO after midnight before surgery,except medications with 15 cc of water. Medication instructions provided according to the PAT guidelines. History Surgery Operation Date: 11/19/24 11:00 Proposed Procedures p Right Anatomic Total Shoulder Arthroplasty Versus Right Reverse Total Shoulder Arthroplasty - Baldomero Vuong, DO Height/Weight Height: 5 ft 5.75 in Weight: 98.9 kg Allergies Allergy/AdvReac Type Severity Reaction Status Date / Time bee venom protein (honey bee) Allergy Severe Anaphylaxis Verified 10/22/24 07:56 adhesive tape Allergy Redness of Verified 10/22/24 08:11 Skin metformin AdvReac Mild Diarrhea Verified 10/22/24 07:56 Medications Home Medications Medication Instructions Recorded Confirmed Last Taken Bacillus coagulans-Bacillus 1 tab PO QAM 10/19/23 10/22/24 11/20/23 08:00 subtilis 1.5 billion cell chewable tablet (Probiotic Duo) Lactobacillus acidophilus 1 tab PO DAILY PRN antibiotic use 10/19/23 10/22/24 Unknown (Acidophilus chewable tablet) ascorbic acid (vitamin C) 1,000 mg 1 g PO QAM 10/19/23 10/22/24 07/25/24 tablet (Vitamin C) bupropion HCl 100 mg tablet 100 mg PO Q2D 10/19/23 10/22/24 07/25/24 celecoxib 200 mg capsule (Celebrex) 200 mg PO BID 10/19/23 10/22/24 07/25/24 cholecalciferol (vitamin D3) 50 4,000 unit PO QAM 01/31/24 02/03/25 11/06/24 mcg (2,000 unit) tablet (Vitamin D3) cranberry concentrate-ascorbic 1 cap PO HS 10/19/23 10/22/24 07/25/24 acid 140 mg-100 mg capsule (Cranberry Plus Vitamin C) cyclobenzaprine 10 mg tablet 10 mg PO TID PRN Muscle Spasm 10/19/23 10/22/24 11/20/23 21:30 5 mg docusate sodium 100 mg tablet 100 mg PO BID 10/19/23 10/22/24 11/20/23 14:30 (Stool Softener) echinacea-dodson seal capsule 1 cap PO DAILY PRN sickness 10/19/23 10/22/24 11/11/23 glipizide 10 mg tablet, extended 10 mg PO BID 10/19/23 10/22/24 07/25/24 release 24 hr insulin glargine 100 unit/mL (3 22 unit subcut HS 10/19/23 10/22/24 07/25/24 mL) subcutaneous pen (Lantus Solostar U-100 Insulin) linagliptin 5 mg tablet (Tradjenta) 5 mg PO QAM 10/19/23 10/22/24 07/25/24 loratadine 10 mg tablet (Claritin) 10 mg PO QAM 10/19/23 10/22/24 07/25/24 lorazepam 0.5 mg tablet (Ativan) 0.5 mg PO DAILY PRN Anxiety 10/19/23 10/22/24 11/21/23 08:00 multivitamin 1 tab PO QAM 10/19/23 10/22/24 07/25/24 omega-3 fatty acids 1,000 mg PO HS 10/19/23 10/22/24 07/25/24 pantoprazole 40 mg tablet,delayed 40 mg PO HS 10/19/23 10/22/24 07/25/24 release sennosides 8.6 mg tablet 8.6 mg PO HS 10/19/23 10/22/24 07/25/24 simvastatin 80 mg tablet 80 mg PO QAM 10/19/23 10/22/24 07/25/24 fexofenadine 30 mg tablet 30 mg PO DAILY PRN Allergy Symptoms 11/21/23 10/22/24 11/20/23 08:00 semaglutide 0.25 mg or 0.5 mg (2 0.5 mg subcut Q7D 07/19/24 10/22/24 07/22/24 mg/3 mL) subcutaneous pen injector ([employer]) tramadol 50 mg tablet 50 mg PO Q8H PRN pain #30 tabs 10/01/24 10/22/24 Unknown fluticasone propionate 50 1 spray intranasal DAILY PRN Nasal 10/22/24 10/22/24 Unknown mcg/actuation nasal Congestion spray,suspension triamcinolone acetonide 0.5 % 1 applic topical DAILY PRN Itching 10/22/24 10/22/24 Unknown topical cream Past Medical History Medical History Anxiety Chronic back pain Improved with chiropractor/therapy Diabetes mellitus, type 2 GERD (gastroesophageal reflux disease) History of COVID-19 10/2020- mild symptoms, resolved History of depression Hyperlipidemia Osteoarthritis Osteoarthritis of left shoulder Skipped heart beats Intermittent x 15+ years s/p unremarkable Holter monitor Sleep apnea No device Exercise / Class Metabolic Activity II 4-5 Yardwork/Stairs/Walk up hill (one FS: no CP, no SOB) Past Family History Family History Mother Family history of reaction to anesthesia difficulty waking Past Surgical History Surgical History Family history of reaction to anesthesia Mother- difficulty waking History of appendectomy History of arthroplasty of left shoulder History of arthroscopy of hip left History of benign breast biopsy History of bilateral tubal ligation History of bladder suspension procedure History of cardiac cath 2016 ([facility])- no stents History of cholecystectomy History of colonoscopy History of dilatation and curettage x3 History of esophagogastroduodenoscopy (EGD) History of gastric restrictive surgery gastric sleeve, ~2018 History of hysterectomy with unilateral oophorectomy History of removal of cyst Removal of "fibrocystic cyts throughout body" History of repair of left rotator cuff History of umbilical hernia repair History of wisdom tooth extraction S/P trigger finger release Right hand, 07/2024 Past Anesthesia History No Hx of Anesthesia Complications * Mother- difficulty waking History of PONV No Hx of PONV and No Hx of Motion Sickness Social History Smoking Status: Former smoker (Only as teen) Do You Dip or Chew Tobacco: No Hx Alcohol Use: Yes alcohol intake frequency: holidays/special occasions only Hx Substance Use: No substance use type: does not use Review of Systems Patient denies chest pain, shortness of breath, dyspnea on exertion, fever, chills, cough, wheezing, palpitations. Physical Exam Vital Signs BP 164/97 > 156/80 P 52 TEMP 97.8 SP02 95%RA RESP 18 Physical Full cervical extension range of motion. Full TMJ range of motion. TMD 4 finger breaths Mallampati Score III Dentition: missing sides Lungs: clear throughout to auscultation Cardiac: regular rate and rhythm, no murmurs noted Spine: normal Carotid arteries: negative bruit Extremities: no LE edema Lab Results Anesthesia Preop Results Results Anesthesia Widget: WBC 6.59 K/ul (4.8-10.8) 11/06/24 Hgb 13.3 g/dl (12.0-16.0) 11/06/24 Hct 40.1 % (37.0-47.0) 11/06/24 Plt 239 K/uL (130-400) 11/06/24 Na 139 mmol/L (136-145) 11/06/24 K 4.9 mmol/L (3.5-5.1) 11/06/24 Cl 106 mmol/L (98-107) 11/06/24 CO2 30 mmol/L (21-32) 11/06/24 BUN 21 mg/dl (6-23) 11/06/24 Creat 0.91 mg/dl (0.6-1.2) 11/06/24 Glucose Level 100 mg/dl (70-99(Fasting)) H 11/06/24 PT 10.2 Seconds (9.0-12.0) 11/06/24 PTT 26 Seconds (21-31) 11/06/24 INR 0.9 (0.9-1.1) 11/06/24 HA1c 6.7 % (4.5-5.6) H 11/06/24 Blood Type A Positive 11/06/24 Antibody Screen NEGATIVE 11/06/24 Testing Electrocardiogram Date: 11/06/24 SB at 48bpm. NS TWA. Chest X-Ray Date: 11/06/24 FINDINGS: The cardiac silhouette measures within normal limits. The hilar and mediastinal structures appear unremarkable. Mild tortuosity of the thoracic aorta. The lungs are clear. The osseous structures appear grossly intact. Uncovertebral degenerative changes of the cervical spine. Degenerative changes of the thoracic spine. Left shoulder arthroplasty. Distal left claviclectomy. Surgical clips in the right upper abdominal quadrant. IMPRESSION: No evidence of acute cardiopulmonary disease, communicable disease or tuberculosis. No significant interval change.
[2024-11-19] MEDS: FAMOTIDINE 20 MG TAB PO SCH (10:28)
[2024-11-19] MEDS: GABAPENTIN 300 MG CAP PO SCH (10:28)
[2024-11-19] MEDS: dexAMETHasone**PF** 10 MG/ML VIAL IV SCH (10:29)
[2024-11-19] MEDS: LR 15ML/HR IV SCH (10:29)
[2024-11-19] MEDS: LR 60ML/HR IV SCH (10:29)
[2024-11-19] MEDS ORDERED: fentaNYL citrate PF 100 MCG/2 ML VIAL ONE (11:33)
[2024-11-19] MEDS ORDERED: PROPOFOL IV EMULSION 10 MG/ML 20 ML VIAL IV ONE (11:33)
[2024-11-19] MEDS ORDERED: ONDANSETRON INJ 2 MG/ML 2 ML VIAL ONE (11:33)
[2024-11-19] MEDS ORDERED: MIDAZOLAM HCL 1 MG/ML 2ML VIAL ONE (11:33)
[2024-11-19] MEDS ORDERED: LIDOCAINE 2% 2 ML VIAL/AMP(20MG/ML) INFIL ONE (11:33)
--- NOTE | 2024-11-19 11:52 | History & Physical Bridge Note ---
Date of Service November 19, 2024 History & Physical Bridge Note I have examined the patient, reviewed the History & Physical and in the interval since the performance of the History & Physical I have noted the following changes of clinical significance: no changes noted
[2024-11-19] MEDS ORDERED: ATROPINE SULFATE 0.1 MG/ML 10ML SYR IV PRN (11:59)
[2024-11-19] MEDS ORDERED: ePHEDrine sulfate 50 MG/ML AMP IV PRN (11:59)
[2024-11-19] MEDS ORDERED: ONDANSETRON INJ 2 MG/ML 2 ML VIAL IV PRN ×2 (11:59→14:53)
[2024-11-19] MEDS ORDERED: fentaNYL citrate PF 100 MCG/2 ML VIAL IV PRN (11:59)
[2024-11-19] MEDS: TRANEXAMIC ACID 1,000 MG **IV Pre-op IV SCH (12:27)
[2024-11-19] MEDS: ceFAZolin 2000MG 2,000 MG/15 ML SYR IV SCH ×2 (12:41→21:08)
[2024-11-19] MEDS ORDERED: ePHEDrine sulfate 50 MG/ML AMP ONE (12:58)
[2024-11-19] MEDS: ORTHO JOINT ANESTHETIC ONE (13:22)
[2024-11-19] MEDS: ROPIV 0.5% 246mg, Ketorolac 30mg, EPINEPHrine 0.5mg in NSS INFIL SCH (13:22)
[2024-11-19] MEDS: TRANEXAMIC ACID 1,000 MG **IV Intra-op IV SCH (13:38)
--- NOTE | 2024-11-19 14:05 | Operative Report ---
PG Post Operative Report Pre & Post Diagnosis Operation Date: 11/19/24 12:30 Pre-Op Diagnosis: Right Shoulder Arthritis with tendinopathy long head of the biceps tendon Post-Op Diagnosis: Right Shoulder Arthritis with tendinopathy long head of the biceps tendon I identified the patient and participated in the time-out.: Yes Procedure Operation Date: 11/19/24 12:30 Actual Procedures p Right Anatomic Total Shoulder Arthroplasty(Right) with open biceps tenodesis as a distinct and separate procedure (modifier 59)- Baldomero Vuong DO Surgeon Baldomero Vuong DO Child Abuse Worker Emmanuel Qiu PA-C Estimated Blood Loss 200 Findings Consistent with Post-Op Diagnosis Specimens Right humeral head Description of Procedure A CPT code modifier 59: The long head of the biceps tendon was enlarged and inflamed consistent with tendinopathy. A tenodesis was opted. This was a separate and distinct portion of the procedure. For these reasons, a CPT code modifier 59 will be added to this case. Implants used: I used a [employer] Comprehensive total shoulder arthroplasty system with a size 9 press fit micro humeral stem, a size 46 x 18 eccentric humeral head, and a size 4 glenoid with a trabecular metal peg. The glenoid was cemented in place with Palacos G cement. Pamela arrived at [facility] for the above procedure. She was seen in the preoperative holding area and the operative extremity was identified and signed. She was given a preoperative antibiotic, TXA, and an interscalene nerve block. She was taken back to the operating room, laid on table in supine position, and put under general anesthesia. She was then put into the beachchair position. The shoulder was then prepped and draped in sterile fashion. A timeout was done and the patient and the operative extremity was properly identified. A deltopectoral approach was used. Dissection was taken down through the fascia and the deltoid was retracted laterally and the conjoined tendon was retracted medially. The anterior shoulder was exposed. The biceps groove was opened up and the biceps tendon was examined extensively. The biceps tendon demonstrated enlargement and inflammatory changes consistent with longstanding inflammation in the context of osteoarthritis. The long head of the biceps tendon was then tenodesed to the upper border of the pectoralis major. This was a separate and distinct portion of the procedure. The subscapularis was then released off the lesser tuberosity with a centimeter of cuff tissue remaining. The inferior capsule was released and the humeral head was dislocated. The rotator cuff was inspected and intact. A canal finding reamer was sent down the center of the humeral canal. Sequential reaming up to a size 9 reamer was done. Offset reamer a proximal humeral resection guide was placed. The proximal humerus was resected at 135 of inclination and 30 of retroversion. Inferior osteophytes were then removed and the glenoid was exposed. Time was spent doing an appropriate labral release. The glenoid measured to be a size 4. A 3.2 mm Steinmann pin was placed in the central hole of the glenoid vault pin guide. The glenoid was then reamed with a propeller reamer. The central post cutter was then used to prepare for the central boss. The cannulated peripheral peg drill guide was then placed and 3 peg holes were drilled. The final size 4 glenoid was then cemented in place with Palacos G cement. Surrounding soft tissues were then injected with 100 cc of an orthopedic pain control cocktail. Once cement had dried the proximal humerus was once again exposed. Sequential broaching of the humerus up to a size 9 broach was done. Off that broach a size 46 x 18 eccentric humeral head was trialed. The shoulder was then reduced, brought through a full range of motion, and felt to be stable. The shoulder was then dislocated and the broach was removed. The final size 9 micro humeral stem implant was then impacted into place. A size 46 x 18 eccentric humeral head was then impacted onto the humeral stem. The shoulder was then reduced and once again brought through a full range of motion and felt to be stable. The subscapularis was then tenodesed back to the lesser tuberosity with transosseous FiberWire sutures and side to side sutures with the arm in 45 of external rotation. 2 sutures were placed in the lateral rotator interval. A dilute betadyne lavage was then done for 3 minutes. The joint was then irrigated with normal saline solution. Hemostasis was obtained. The interval was closed with 2-0 Vicryl suture. The skin was closed with 2-0 Vicryl and windy. A Silverlon dressing was placed and the arm was rested in a regular arm sling. She was then extubated and transferred to a hospital bed. She was taken to the postanesthesia care unit in stable condition. She tolerated the procedure well. Emmaneul Qiu PA-C, was present for the entire procedure. He was critical for patient positioning, prepping, draping, retraction exposure, wound closure and application of sterile dressing. I attest to the content of the Intraoperative Record and any orders documented therein. Any exceptions are noted below.
--- NOTE | 2024-11-19 14:35 | Anesthesiology Progress Note ---
Date of Service November 19, 2024 Anesthesia Post Procedure Vital Signs Vital Signs: Temp Pulse Pulse Resp BP Pulse Ox O2 Del Method 11/19/24 14:25 71 17 133/64 96 Oxymask 11/19/24 14:15 67 14 139/85 98 Oxymask 11/19/24 14:06 36.0 C L 92 H 16 156/97 H 96 Oxymask 11/19/24 10:18 36.4 C L 56 L 20 165/79 H 96 Room Air O2 Flow Rate 11/19/24 14:25 2 11/19/24 14:15 4 11/19/24 14:06 4 11/19/24 10:18 Transfer of Care Handoff Completed per policy Notes Mental Status: alert / awake / arousable Patient Amnestic to Procedure: Yes Nausea / Vomiting: adequately controlled Pain: adequately controlled Airway Patency, RR, SpO2: stable & adequate BP & HR: stable & adequate Hydration State: stable & adequate Anesthetic Complications: no major complications apparent and Pt Satisfied with anesthetic care
[2024-11-19] MEDS ORDERED: MAGNESIUM HYDROXIDE SUSP 30 ML UDC PO PRN (14:53)
[2024-11-19] MEDS ORDERED: oxyCODONE HCL IR 5 MG TAB (IMMEDIATE RELEASE) PO PRN (14:53)
[2024-11-19] MEDS ORDERED: METOCLOPRAMIDE HCL INJ 5 MG/ML 2 ML VIAL IV PRN (14:53)
[2024-11-19] MEDS ORDERED: HYDROmorphone INJ 0.5 MG/0.5 ML SYR IV PRN (14:53)
[2024-11-19] MEDS ORDERED: NON-FORMULARY MEDICATION (Semaglutide [Ozempic] 0.25 mg or 0.5 mg (2 mg/3 mL) pen injector SQ SCH (14:53)
[2024-11-19] MEDS ORDERED: bisacodyL 10 MG SUPP PR PRN (14:53)
[2024-11-19] MEDS ORDERED: NALOXONE HCL 0.4 MG/1 ML VIAL/CARP IV PRN (14:53)
[2024-11-19] MEDS ORDERED: PHARMACY GLYCEMIC MGMT CONSULT PRN (14:53)
[2024-11-19] MEDS: BUPIVACAINE LIPOSOME 1.3% 133 MG/10 ML VIAL ONE (15:01)
[2024-11-19] MEDS ORDERED: DEXTROSE 50% 50 ML SYRINGE IV PRN (15:15)
[2024-11-19] MEDS ORDERED: GLUCAGON FOR INJ 1 MG VIAL SQ PRN (15:15)
[2024-11-19] MEDS ORDERED: GLUCOSE 40% GEL 15 GM TUBE PO PRN (15:15)
[2024-11-19] MEDS ORDERED: CARBOHYDRATES FOR HYPOGLYCEMIA PO PRN (15:15)
[2024-11-19] MEDS ORDERED: GLUCOSE 10 TAB/TUBE PO PRN (15:15)
--- NOTE | 2024-11-19 15:18 | XRay Report ---
XR shoulder RT min 2V routine CLINICAL HISTORY: Post shoulder surgery COMPARISON: None FINDINGS: Right shoulder prosthesis shows no hardware competition. There is expected soft tissue gas . Skin windy are present. IMPRESSION: Unremarkable postoperative exam. ACT 112: Negative or not required by law. Electronically signed by: Dean Urbina M.D. 11/19/2024 3:17 PM
--- NOTE | 2024-11-19 15:20 | Pharmacy Report ---
Pharmacy Glycemic Short Note 2 - Date of Service November 19, 2024 - Glycemic Short BSG Results (Last 24 hours): 11/19/24 11/19/24 11/19/24 12:03 14:09 15:08 POC Glucose 87 155 H 191 H OUTPATIENT ANTIDIABETIC REGIMEN: * Glipizide 10 mg PO BID * Tradjenta 5 mg PO AM * Lantus 22 units SC HS * Ozempic 0.5 mg SC every Tuesday HbA1c: * 6.7% (11/06/24) ASSESSMENT: * 64 yo F admitted on 11/19/24 postoperatively following a right total shoulder arthroplasty. Pharmacy has been consulted to assist with inpatient glycemic management. Patient is a Type 2 diabetic as an outpatient. Please refer to outpatient regimen and most recent HbA1c above. * Preop BSG was 87 mg/dL. Postop BSGs have been 155 and 191 mg/dL. Patient did receive 10 mg of IV dexamethasone and an ortho joint mix periop. No ongoing steroids ordered. T2DM diet to start with dinner, will follow to see if patient tolerates. * Will give 20 units of Lantus at bedtime as patient takes insulin at this time at home. Novolog being started based on weight/stress of 2-3. Targeting postop BSGs less than 180 mg/dL. Adding an overnight check for one night only. PLAN FOR INPATIENT GLYCEMIC CONTROL: * Hold outpatient oral diabetes medications * Basal insulin * Lantus 20 units SC HS * Bolus insulin * NovoLog per scale ACHS or Q6hrs while NPO * Goal Range: Low 110 mg/dL - High 140 mg/dL * Correction Factor: 20 mg/dL/unit * Nutritional / Prandial insulin per carb ratio of 1 unit per 7 grams CHO consumed
[2024-11-19] MEDS: KETOROLAC TROMETHAMINE 15 MG/ML VIAL IV SCH (15:42)
[2024-11-19] MEDS: INSULIN ASPART PER UNIT CHARGE SC SCH (17:33)
[2024-11-19] MEDS ORDERED: DOCUSATE SODIUM 100 MG CAP PO SCH (21:00)
[2024-11-19] MEDS ORDERED: SENNA 8.6 MG TAB PO SCH (21:00)
[2024-11-19] MEDS ORDERED: GLIPIZIDE 10 MG PO SCH (21:00)
[2024-11-19] MEDS: DOCUSATE SODIUM 100 MG CAP PO SCH (21:08)
[2024-11-19] MEDS: ACETAMINOPHEN 500 MG TAB PO SCH (21:09)
[2024-11-19] MEDS: SENNA 8.6 MG TAB PO SCH (21:09)
[2024-11-19] MEDS: PANTOprazole 40 MG TAB PO SCH (21:12)
[2024-11-19] MEDS: LANTUS PER UNIT CHARGE SC SCH (21:13)
[2024-11-20] MEDS: INSULIN ASPART PER UNIT CHARGE SC ONE (02:06)
[2024-11-20 07:03] VITALS: BP 125/71; PULSE 53; RESP 16; TEMP 97.7; O2SAT 94
[2024-11-20] MEDS: MULTIVITAMIN TAB PO SCH (08:03)
[2024-11-20] MEDS: buPROPion HCl 100 MG TABLET PO SCH (08:03)
[2024-11-20] MEDS: COUGH DROP (SUGAR FREE) LOZ 24 LOZ/1 BOX BUCCAL ONE (08:03)
[2024-11-20] MEDS: SIMVASTATIN 80 MG TAB PO SCH (09:23)
--- NOTE | 2024-11-20 09:34 | Orthopedic Progress Note ---
Date of Service November 20, 2024 Assessment & Plan (1) Status post replacement of right shoulder joint: Assessment: Status post anatomical total shoulder arthroplasty of the right shoulder. Plan: Overall, she is doing quite well today with good pain control right shoulder. She will work with physical therapy later this morning work on range of motion exercises. She can be discharged home later this morning pending formal physical therapy evaluation recommendations. Her Silverlon dressing will remain in place for 7 days. After 7 days, she may allow the surgical site to be open to air. She will follow-up with orthopedics in 2 weeks for continued postoperative management or sooner if needed. Theresa Santiago was seen and evaluated this morning resting comfortably in no apparent distress. She notes that her pain is well-controlled to the right shoulder. She has been up and out of bed with no significant issues today. She has yet to work physical therapy this morning. She denies any concerns with her surgical incision site. Denies any active bleeding, discharge, or signs of infection. She denies any other concerns today. Review of Systems All systems reviewed & are unremarkable except as noted in HPI & below. Physical Exam . On physical examination of the right shoulder, her dressing is clean, dry, intact with no signs of active bleeding, discharge, or signs of infection. She is in her sling as directed. She has normal range of motion and strength at the elbow, wrist, and all 5 digits. +2 radial pulse. Less than 2-second capillary refill. Normal sensation. Neurovascular intact. Results & Data Results & Data Laboratory Results . Diagnostic Findings . Shoulder X-Ray 11/19/24 14:10 XR shoulder RT min 2V routine CLINICAL HISTORY: Post shoulder surgery COMPARISON: None FINDINGS: Right shoulder prosthesis shows no hardware competition. There is expected soft tissue gas. Skin windy are present. IMPRESSION: Unremarkable postoperative exam. ACT 112: Negative or not required by law. Electronically signed by: Dean Urbina M.D. 11/19/2024 3:17 PM PG Care Time/CCT Total # of Minutes Spent Total Time Spent with Patient: Total time spent is greater than 50% in coordination of care (as documented) at patient's floor/unit and/or counseling patient: Coding Level of Care Code 37544 Post Operative Follow-Up Diagnoses Status post replacement of right shoulder joint Z96.611
--- NOTE | 2024-11-20 09:36 | Discharge Summary ---
Date of Service November 20, 2024 Principal Diagnosis Same as "Discharge Diagnosis" noted below under Discharge Instructions. Discharge Exam . On physical examination of the right shoulder, her dressing is clean, dry, intact with no signs of active bleeding, discharge, or signs of infection. She is in her sling as directed. She has normal range of motion and strength at the elbow, wrist, and all 5 digits. +2 radial pulse. Less than 2-second capillary refill. Normal sensation. Neurovascular intact. Discharge Data Procedures Performed Operation Date: 11/19/24 12:30 Actual Procedures p Right Anatomic Total Shoulder Arthroplasty(Right) - Baldomero Vuong DO Ordered Studies 11/19/24 05:00 US - OR guided needle placemen Routine Hospital Course (1) Status post replacement of right shoulder joint: On November 19, 2024 Pamela arrived at [facility] and underwent a right anatomical total shoulder arthroplasty performed by Dr. Vuong with no complications. She had a general anesthetic. Postoperatively, she was transferred to the PACU for immediate postoperative management and then transferred to the general orthopedic floor in stable condition. Her hospital course was uneventful. On postoperative day #1, her vital signs were stable and her pain was well-controlled. She participated well physical therapy working on range of motion exercises. She was then discharged home in stable condition. She will follow-up with orthopedics in 2 weeks for continued postoperative management or sooner if needed. PG Care Time/CCT Total # of Minutes Spent Total Time Spent with Patient: Total time spent is greater than 50% in coordination of care (as documented) at patient's floor/unit and/or counseling patient: Discharge Plan Discharge Items Patient Disposition: Home - Self-Care Reason For Visit: Right Shoulder Arthritis Discharge Diagnosis: Right shoulder replacement Activity: Per Instructions section Non-emergency contact: Surgeon Call non-emergency contact if: your wound has increased redness and your wound has increased drainage Follow-up/Referrals: Iris Raman D.O. [Primary Care Provider] - Diet: Regular Addtl Attending Provider Instructions: Activity and Therapy Recommendations: * If you are using [facility] then therapy will be provided at your home until they feel you have accomplished all of your goals. * If you are using [facility] then Physical Therapy will be provided until they feel you are ready to start Outpatient Physical Therapy. * If you are not using home therapy then Outpatient Physical Therapy should start about 3-5 days from your day of surgery. Therapy will last about 8-12 weeks * Wear your sling for 3 weeks, unless otherwise instructed. You may remove your sling to shower and to dress, but otherwise, you should be in your sling at all times, including while sleeping * The shoulder replacement is very stable and you can use your hand while in the sling * You were shown a series of exercises in the hospital. Do these exercises daily including the exercises you were shown in physical therapy. Medications: * Narcotic You will likely be sent home from the hospital with a prescription for the narcotic pain medication that worked best throughout your stay. * Cefadroxil -take the antibiotic twice a day for 10 days to help prevent infection. * Other medications may be prescribed for specific circumstances. If you have any questions, please call the office at . * Resume previous home medications unless otherwise instructed Dressing Care: Leave the Silverlon dressing in place for 7 days. After 7 days you may remove the dressing. If the incision is not draining then you may leave the windy open to air. If there is a little bit of drainage or if the windy are getting stuck on your clothing then cover the incision with a dry dressing. The windy will be removed at your 2 week follow-up appointment. Showering: You may shower with the Silverlon dressing in place. Do not let the shower spray hit the dressing directly. Pat the Silverlon dressing dry. If the dressing becomes wet underneath, then simply remove the dressing. Keep the incision dry until you are 7 days out from the day of surgery. After 7 days you may remove the Silverlon dressing and shower with the windy exposed. Let soapy water run over the windy and pat them dry. Do not scrub or soak the incision. Diet: You may resume your previous diet. Things To Watch For: * Drainage from the incision site that occurs more than one week after your surgery. * Increased redness at the incision site. * Fever above 102 degrees Fahrenheit. * Unusual chest pain or shortness of breath. * Call [facility] at with any of the above problems Follow-Up Visit: Follow-up with Dr. Vuong's office 2-3 weeks after your day of surgery. We will remove your windy and answer any questions. If you have any additional questions or concerns, Dr Vuong is usually in the office at the same time and will be available An appointment was probably scheduled when you signed-up for surgery in the office. If you have any questions call More detailed instructions as well as Frequently Asked Questions were provided in a folder by our office when you signed-up for surgery. Please review these instructions when you get home. If you have any further questions or concerns, please feel free to call the office at [phone] Pending Studies at Discharge: No Stand-Alone Forms: [facility] [employer], Pain - Opioid Pain Management, Smoking Cessation Medications and DC Order Prescriptions: New cefadroxil 500 mg capsule 500 mg PO BID 10 Days Qty: 20 0RF oxycodone 5 mg tablet 5 mg PO Q6H PRN (Reason: pain) Qty: 30 0RF Continued tramadol 50 mg tablet 50 mg PO Q8H PRN (Reason: pain) Qty: 30 0RF celecoxib [Celebrex] 200 mg Capsule 200 mg PO BID Hold Instructions: Resume on 08/01/24. cyclobenzaprine 10 mg Tablet 10 mg PO TID PRN (Reason: Muscle Spasm) glipizide 10 mg Tablet Extended Release 24hr 10 mg PO BID Cranberry Plus Vitamin C 140-100 mg Capsule 1 cap PO HS bupropion HCl 100 mg Tablet 100 mg PO Q2D Patient Comments: takes in the am lorazepam [Ativan] 0.5 mg Tablet 0.5 mg PO DAILY PRN (Reason: Anxiety) echinacea-dodson seal Capsule 1 cap PO DAILY PRN (Reason: sickness) loratadine [Claritin] 10 mg Tablet 10 mg PO QAM Acidophilus Tablet,Chewable 1 tab PO DAILY PRN (Reason: antibiotic use) insulin glargine [Lantus Solostar U-100 Insulin] 100 unit/mL (3 mL) Insulin Pen 22 unit SUBCUT HS Probiotic Duo 1.5 billion cell Tablet,Chewable 1 tab PO QAM multivitamin Tablet 1 tab PO QAM omega-3 fatty acids Capsule 1,000 mg PO HS sennosides 8.6 mg Tablet 8.6 mg PO HS pantoprazole 40 mg Tablet,Delayed Release (Dr/Ec) 40 mg PO HS ascorbic acid (vitamin C) [Vitamin C] 1,000 mg Tablet 1 g PO QAM simvastatin 80 mg Tablet 80 mg PO QAM docusate sodium [Stool Softener] 100 mg Tablet 100 mg PO BID cholecalciferol (vitamin D3) [Vitamin D3] 50 mcg (2,000 unit) Tablet 4,000 unit PO QAM Tradjenta 5 mg Tablet 5 mg PO QAM fexofenadine 30 mg Tablet 30 mg PO DAILY PRN (Reason: Allergy Symptoms) Ozempic 0.25 mg or 0.5 mg (2 mg/3 mL) pen injector 0.5 mg SUBCUT Q7D Patient Comments: Sundays triamcinolone acetonide 0.5 % Cream 1 applic TOPICAL DAILY PRN (Reason: Itching) fluticasone propionate 50 mcg/actuation Dille,Suspension 1 spray INTRANASAL DAILY PRN (Reason: Nasal Congestion) Rx Instructions: administer into each nostril Discharge Orders: Discharge Order (Routine); Ordered 11/20/24 Ordered By: Migel Qiu Admission Data Admit Date/Time: 11/19/24 14:10 Attending Provider: Baldomero Vuong Admit Provider: Baldomero Vuong Primary Care Provider: Iris Raman Other Interventions: Discharge Summary Assessment (RN) Last Done: 11/20/24 08:58
== END 2024-11-20 10:48 | disposition home or self-care (01) ==
LOC: ASU 09:56 → 3W 09:56
DX: M19.011 Primary osteoarthritis, right shoulder; G47.33 Obstructive sleep apnea (adult) (pediatric); E78.5 Hyperlipidemia, unspecified; Z91.030 Bee allergy status; Z79.85 Long-term (current) use of injectable non-insulin antidiabetic drugs; K21.9 Gastro-esophageal reflux disease without esophagitis; M75.21 Bicipital tendinitis, right shoulder; Z88.8 Allergy status to other drugs, medicaments and biological substances; Z79.899 Other long term (current) drug therapy; E11.9 Type 2 diabetes mellitus without complications; Z87.891 Personal history of nicotine dependence; Z91.048 Other nonmedicinal substance allergy status